=== PATIENT | female | born 1965 | race Caucasian/White ===

== ENCOUNTER 2016-11-05 13:08 | Emergency (ER) | payer OTHER ==
[~2016-11-05] VITALS: Ht 160 cm; Wt 69.2 kg
[~2016-11-05 13:08] MED LIST: ADVIL,NUPRIN,M200 MG PO; B COMPLETE1 EACH PO; CYMBALTA30 MG PO; DHEA25 MG PO; FISH OIL300 MG PO; HYDROCODON-ACE1 EAC7 PO; IBUPROFEN800 MG PO; KAVA KAVA PO; MELOXICAM15 MG PO; METAXALONE800 MG PO; OMEPRAZOLE40 M1 PO; PANTOPRAZOLE SO40 MG PO; PERCOCET 5/31 TABLET PO; PERFECT IRON25 MG PO; TOPIRAMATE25 MG PO; TRAMADOL HCL50 MG PO; TYLENOL REGULA325 MG PO; VALIUM5 MG PO
[2016-11-05 14:10] LABS: MCH 29.5 PG (29.0-34.0); MCHC 33.9 G/DL (30.0-36.0); MEAN PLAT.VOLUME 9.7 uM^3 (9.5-12.4); PLATELET COUNT 312 K/uL (156-360); RBC DIS.WIDTH-CV 13.5 % (11.8-14.6); RBC DIS.WIDTH-SD 42.6 % (39-53); RED BLOOD COUNT 4.37 M/uL (3.80-5.20); WHITE BLOOD COUNT 7.4 K/uL (4.1-10.2)
[2016-11-05 14:28] LABS: CHLORIDE 103 mEq/L (99-109); POTASSIUM 3.9 mEq/L (3.7-5.4); SODIUM 141 mEq/L (136-147)
[2016-11-05 14:30] LABS: GLUCOSE 94 mg/dL (70-99)
[2016-11-05 14:31] LABS: ANION GAP 11 MEQ/L (2-14)
[2016-11-05 14:33] LABS: QUANTITATIVE HCG < 4.0 MIU/ML
[2016-11-05 14:34] LABS: GFR ESTIMATE (CALCULATED) > 59 mL/min/; TROP-I INTERPRETATION NEGATIVE; TROPONIN-I < 0.01 ng/mL (0.0-0.30)
[2016-11-05 14:35] LABS: UREA NITROGEN (BUN) 12 mg/dL (9-23)
[2016-11-05] MEDS ORDERED: HYDROCHLOROTHIA25 MG PO (14:57)
[2016-11-05 15:04] VITALS: BP 152/93
[2016-11-05] MEDS ORDERED: CYCLOBENZAPRINE10 MG PO (15:06)
== END 2016-11-05 15:08 | disposition home or self-care (01) ==
LOC: EME → EDBD 13:08 → EME 13:08
PROVIDERS: Emergency Medicine
DX: R55 Syncope and collapse (principal); R03.0 Elevated blood-pressure reading, without diagnosis of hypertension
CPT/HCPCS: 80048; 84484; 84702; 85027; 93005; 99281; 99284

== ENCOUNTER 2016-11-07 13:45 | Emergency (ER) | payer OTHER ==
[~2016-11-07] VITALS: Ht 160 cm; Wt 46.0 kg
[~2016-11-07 13:45] MED LIST changes: +CYCLOBENZAPRINE10 MG PO; +HYDROCHLOROTHIA25 MG PO
[2016-11-07 15:38] LABS: MCH 29.1 PG (29.0-34.0); MCHC 33.8 G/DL (30.0-36.0); MCV 86.2 FL (83-99); MEAN PLAT.VOLUME 9.9 uM^3 (9.5-12.4); PLATELET COUNT 339 K/uL (156-360); RBC DIS.WIDTH-CV 13.4 % (11.8-14.6); RBC DIS.WIDTH-SD 41.7 % (39-53); RED BLOOD COUNT 4.64 M/uL (3.80-5.20); WHITE BLOOD COUNT 7.3 K/uL (4.1-10.2)
[2016-11-07 15:49] LABS: CHLORIDE 100 mEq/L (99-109); POTASSIUM 3.7 mEq/L (3.7-5.4); SODIUM 141 mEq/L (136-147)
[2016-11-07 15:50] LABS: GLUCOSE 94 mg/dL (70-99)
[2016-11-07 15:52] LABS: ANION GAP 12 MEQ/L (2-14)
[2016-11-07 15:54] LABS: GFR ESTIMATE (CALCULATED) > 59 mL/min/
[2016-11-07 15:55] LABS: UREA NITROGEN (BUN) 12 mg/dL (9-23)
[2016-11-07 17:41] VITALS: BP 144/91
== END 2016-11-07 17:43 | disposition home or self-care (01) ==
LOC: EME 13:45
PROVIDERS: Emergency Medicine
DX: G40.909 Epilepsy, unspecified, not intractable, without status epilepticus (principal); M79.621 Pain in right upper arm; K21.9 Gastro-esophageal reflux disease without esophagitis; Z88.6 Allergy status to analgesic agent
CPT/HCPCS: 73030; 80048; 85027; 93880; 99281; 99284

== ENCOUNTER 2017-03-21 02:55 | Emergency (ER) | payer OTHER ==
[~2017-03-21] VITALS: Ht 160 cm; Wt 60.7 kg
[2017-03-21 03:48] LABS: MCH 29.2 PG (29.0-34.0); MCHC 34.4 G/DL (30.0-36.0); MCV 84.8 FL (83-99); MEAN PLAT.VOLUME 9.8 uM^3 (9.5-12.4); PLATELET COUNT 283 K/uL (156-360); RBC DIS.WIDTH-CV 12.1 % (11.8-14.6); RBC DIS.WIDTH-SD 37.1 % (39-53); RED BLOOD COUNT 4.01 M/uL (3.80-5.20); WHITE BLOOD COUNT 7.4 K/uL (4.1-10.2)
[2017-03-21 04:00] LABS: CHLORIDE 106 mEq/L (99-109); POTASSIUM 3.7 mEq/L (3.7-5.4); SODIUM 139 mEq/L (136-147)
[2017-03-21 04:02] LABS: GLUCOSE 113 mg/dL (70-99)
[2017-03-21 04:03] LABS: ANION GAP 8 MEQ/L (2-14)
[2017-03-21 04:04] LABS: TOTAL BILIRUBIN 0.4 mg/dL (0.0-1.0)
[2017-03-21 04:05] LABS: SERUM ETHYL ALCOHOL < 10 mg/dL
[2017-03-21 04:06] LABS: ALKALINE PHOSPHATASE 61 IU/L (3-129); GFR ESTIMATE (CALCULATED) > 59 mL/min/
[2017-03-21 04:07] LABS: UREA NITROGEN (BUN) 16 mg/dL (9-23)
[2017-03-21] MEDS ORDERED: CLONAZEPAM0.5 MG PO (04:10)
[2017-03-21] MEDS ORDERED: LISINOPRIL10 MG PO (04:11)
[2017-03-21] MEDS ORDERED: ESCITALOPRAM OX10 MG PO (04:11)
[2017-03-21] MEDS ORDERED: ZANTAC150 MG PO (04:12)
[2017-03-21] MEDS ORDERED: VITAMIN B-6 PO (04:14)
[2017-03-21 04:18] LABS: QUANTITATIVE HCG < 4.0 MIU/ML
[2017-03-21 05:32] LABS: ADD MIUA? YES; BILIRUBIN NEGATIVE; BLOOD SMALL; COLOR YELLOW ((YELLOW)); GLUCOSE (STRIP) NEGATIVE; KETONES NEGATIVE; LEUKOCYTES MODERATE; NITRITE NEGATIVE; PROTEIN (STRIP) NEGATIVE; SPECIFIC GRAVITY 1.011 (1.000-1.030); UROBILINOGEN 0.2 MG/DL (0.2-1.0)
[2017-03-21 05:42] LABS: AMPHETAMINE NEGATIVE (500 ng/mL); BARBITURATES NEGATIVE (200 ng/mL); BENZODIAZEPINES NEGATIVE (150 ng/mL); COCAINE NEGATIVE (150 ng/mL); INTERNAL CONTROLS VALID? YES; METHADONE NEGATIVE (200 ng/mL); METHAMPHETAMINE NEGATIVE (500 ng/mL); OPIATES (MORPHINE) NEGATIVE (100 ng/mL); OXYCODONE NEGATIVE (100 ng/mL); PHENCYCLIDINE NEGATIVE (25 ng/mL); PROPOXYPHENE NEGATIVE (300 ng/mL); THC CANNABINOIDS NEGATIVE (50 ng/mL); TRICYCLIC ANTIDEPRESSANTS NEGATIVE (300 ng/mL)
[2017-03-21 05:57] LABS: BACTERIA 1+ /HPF; EPITHELIAL CELLS 2+ /HPF; MUCUS 1+ /LPF; RED BLOOD CELLS 0-5 /HPF (0-5); UCUL ADDED? YES; WHITE BLOOD CELLS 15-20 /HPF (0-5)
[2017-03-21] MEDS ORDERED: CEFTIN250 MG PO (07:33)
[2017-03-21] MEDS ORDERED: ZOLOFT100 MG PO ×2 (10:04→10:05)
[2017-03-21 10:48] VITALS: BP 106/69
== END 2017-03-21 11:11 | disposition home or self-care (01) ==
LOC: EME → EDBD 02:55 → EME 11:11
PROVIDERS: Emergency Medicine
DX: F43.23 Adjustment disorder with mixed anxiety and depressed mood (principal); F33.1 Major depressive disorder, recurrent, moderate; F44.5 Conversion disorder with seizures or convulsions; M25.511 Pain in right shoulder; G89.29 Other chronic pain; K21.9 Gastro-esophageal reflux disease without esophagitis; N39.0 Urinary tract infection, site not specified
CPT/HCPCS: 73030; 80053; 81003; 84702; 85027; 87086; 90837; 99281; 99285; G0480

== ENCOUNTER 2017-03-26 12:34 | Emergency (ER) | payer OTHER ==
[~2017-03-26] VITALS: Ht 160 cm; Wt 63.5 kg
[~2017-03-26 12:34] MED LIST changes: +CEFTIN250 MG PO; +CLONAZEPAM0.5 MG PO; +ESCITALOPRAM OX10 MG PO; +LISINOPRIL10 MG PO; +VITAMIN B-6 PO; +ZANTAC150 MG PO; +ZOLOFT100 MG PO
[2017-03-26 14:07] LABS: EOSINOPHIL (%) 1.6 % (0-5); EOSINOPHIL COUNT 0.1 K/uL (0-0.3); HEMATOCRIT 35.3 % (36.0-46.0); IMMATURE GRANULOCYTE (%) 0.2 % (0.0-0.7); INSTRUMENT ABS NEUTROPHIL CT 3.2 K/uL; LYMPHOCYTE COUNT 1.4 K/uL (1.0-2.8); MCH 29.2 PG (29.0-34.0); MCHC 34.3 G/DL (30.0-36.0); MCV 85.1 FL (83-99); MEAN PLAT.VOLUME 9.8 uM^3 (9.5-12.4); MONOCYTE (%) 7.1 % (3-12); MONOCYTE COUNT 0.4 K/uL (0-0.8); NEUTROPHIL (%) 62.7 % (45-76); NEUTROPHIL COUNT 3.2 K/uL (1.8-6.4); PLATELET COUNT 290 K/uL (156-360); RBC DIS.WIDTH-CV 12.2 % (11.8-14.6); RBC DIS.WIDTH-SD 36.7 % (39-53); RED BLOOD COUNT 4.15 M/uL (3.80-5.20); WHITE BLOOD COUNT 5.1 K/uL (4.1-10.2)
[2017-03-26 14:18] LABS: CHLORIDE 108 mEq/L (99-109); POTASSIUM 3.8 mEq/L (3.7-5.4); SODIUM 139 mEq/L (136-147)
[2017-03-26 14:20] LABS: GLUCOSE 98 mg/dL (70-99)
[2017-03-26 14:21] LABS: ANION GAP 7 MEQ/L (2-14)
[2017-03-26 14:24] LABS: GFR ESTIMATE (CALCULATED) > 59 mL/min/
[2017-03-26 14:25] LABS: UREA NITROGEN (BUN) 14 mg/dL (9-23)
[2017-03-26] MEDS ORDERED: MECLIZINE HCL25 MG PO (16:58)
[2017-03-26 17:31] VITALS: BP 125/76
[2017-03-26 17:39] LABS: ADD MIUA? YES; BILIRUBIN NEGATIVE; BLOOD NEGATIVE; COLOR YELLOW ((YELLOW)); GLUCOSE (STRIP) NEGATIVE; KETONES NEGATIVE; LEUKOCYTES NEGATIVE; NITRITE NEGATIVE; PROTEIN (STRIP) NEGATIVE; SPECIFIC GRAVITY 1.016 (1.000-1.030); UROBILINOGEN 0.2 MG/DL (0.2-1.0)
[2017-03-26 17:48] LABS: BACTERIA RARE /HPF; EPITHELIAL CELLS 1+ /HPF; MUCUS 1+ /LPF; RED BLOOD CELLS 0-5 /HPF (0-5); UCUL ADDED? NO; WHITE BLOOD CELLS 0-5 /HPF (0-5)
== END 2017-03-26 18:01 | disposition home or self-care (01) ==
LOC: EME 12:34
PROVIDERS: Emergency Medicine
DX: R42 Dizziness and giddiness (principal); Z91.81 History of falling
CPT/HCPCS: 70450; 80048; 81003; 85025; 99281; 99285; J1200; J2060; J2765

== ENCOUNTER 2017-09-07 21:36 | Emergency (ER) | payer OTHER ==
[~2017-09-07] VITALS: Ht 160 cm; Wt 72.5 kg
[~2017-09-07 21:36] MED LIST changes: +MECLIZINE HCL25 MG PO
[2017-09-07 22:44] LABS: BASOPHIL (%) 0.5 % (0-1); EOSINOPHIL COUNT 0.2 K/uL (0-0.3); HEMATOCRIT 35.6 % (36.0-46.0); HEMOGLOBIN 12.2 G/DL (11.9-15.5); IMMATURE GRANULOCYTE (%) 0.4 % (0.0-0.7); LYMPHOCYTE (%) 21.1 % (15-42); LYMPHOCYTE COUNT 1.6 K/uL (1.0-2.8); MCH 29.8 PG (29.0-34.0); MCHC 34.3 G/DL (30.0-36.0); MONOCYTE (%) 9.1 % (3-12); MONOCYTE COUNT 0.7 K/uL (0-0.8); NEUTROPHIL (%) 65.9 % (45-76); NEUTROPHIL COUNT 4.9 K/uL (1.8-6.4); PLATELET COUNT 273 K/uL (156-360); RBC DIS.WIDTH-CV 13.2 % (11.8-14.6); RBC DIS.WIDTH-SD 42.2 % (39-53); RED BLOOD COUNT 4.09 M/uL (3.80-5.20); WHITE BLOOD COUNT 7.4 K/uL (4.1-10.2)
[2017-09-07 22:54] LABS: CHLORIDE 106 mEq/L (99-109); POTASSIUM 3.7 mEq/L (3.7-5.4); SODIUM 139 mEq/L (136-147)
[2017-09-07 22:55] LABS: GLUCOSE 106 mg/dL (70-99)
[2017-09-07 22:59] LABS: CREATININE 0.8 mg/dL (0.6-1.3); GFR ESTIMATE (CALCULATED) > 59 mL/min/
[2017-09-07 23:00] LABS: UREA NITROGEN (BUN) 17 mg/dL (9-23)
[2017-09-07 23:02] LABS: CREATINE KINASE 135 IU/L (1-294)
[2017-09-07 23:32] LABS: VALPROIC ACID (DEPAKOTE) 26.3 MCG/ML (50-100)
[2017-09-08 01:18] VITALS: BP 117/78
== END 2017-09-08 01:18 | disposition home or self-care (01) ==
LOC: EME → EDBD 21:36 → EME 09-08 01:18
PROVIDERS: Emergency Medicine
DX: G40.909 Epilepsy, unspecified, not intractable, without status epilepticus (principal); R51 Headache; M54.2 Cervicalgia; M25.511 Pain in right shoulder
CPT/HCPCS: 70450; 80048; 80164; 82550; 85025; 99281; 99285; J1200; J2765; J7030